=== PATIENT | male | born 1930 | race Hispanic/Latino ===

== ENCOUNTER 2017-04-30 00:42 | Emergency (ER) | payer MEDICARE ==
--- NOTE | 2017-04-30 02:31 | Cat Scan Report ---
FINAL REPORT EXAM: CT HEAD/BRAIN WO CON HISTORY: fall pain TECHNIQUE: Routine axial imaging was obtained of the brain without IV contrast. Comparison is made to the study of 04/06/2016. FINDINGS: There is mild generalized atrophy. There is a remote stroke in the right occipital lobe. There is no evidence of acute stroke or hemorrhage. There is diminished attenuation of the periventricular white matter bilaterally compatible with chronic microvascular disease changes. There are no extra-axial fluid collections. There are benign basal ganglia calcifications body. The visualized sinuses are clear. The mastoid air cells are well pneumatized. The calvarium appears intact. IMPRESSION: Mild generalized atrophy with chronic ischemic white matter changes. No evidence of acute stroke or hemorrhage Remote stroke in the right occipital lobe.
--- NOTE | 2017-04-30 02:34 | Cat Scan Report ---
FINAL REPORT EXAM: CT CERVICAL SPINE WO CON HISTORY: fall pain TECHNIQUE: Routine axial imaging was obtained of the cervical spine without IV contrast with sagittal and coronal reconstructions FINDINGS: There is severe narrowing of the C5-C6 and C6-C7 disc with mild narrowing of the C4-C5 disc. The alignment appears normal. There is varying degrees of facet arthropathy changes bilaterally with varying degrees of neural foraminal impingement. There is no evidence of fracture. The prevertebral soft tissues and C1-C2 articulation appear intact. The soft tissues reveal inhomogeneous attenuation of both thyroid lobes. 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 No acute injury. Inhomogeneous attenuation of both thyroid lobes. Further evaluation may be obtained with outpatient thyroid sonography.
--- NOTE | 2017-04-30 03:13 | XRay Report ---
FINAL REPORT EXAM: XR SHOULDER 2+V LT HISTORY: post fall shoulder pain TECHNIQUE: Three views of the left shoulder were submitted. FINDINGS: There is no evidence of fracture or dislocation. The AC joint and glenohumeral joint appear intact. Soft tissues are unremarkable. IMPRESSION: No evidence of acute injury.
--- NOTE | 2017-04-30 03:14 | XRay Report ---
FINAL REPORT EXAM: XR PELVIS 1-2V HISTORY: post fall pelvic pain TECHNIQUE: A portable AP view of the pelvis was submitted. FINDINGS: The bony pelvic ring appears intact. The SI joints appear normal. The hip joints are well maintained. There is no evidence of fracture. The soft tissues reveal vascular calcifications in the pelvis and proximal thighs. IMPRESSION: No evidence of acute injury.
[2017-04-30 03:48] LABS: Bilirubin,Urine NEG (Negative); Blood,Urine MOD (Negative); Color,Urine Yellow (Yellow); Hyaline Casts,Urine 4 /LPF; Mucus,Urine FEW /HPF; Nitrite,Urine NEG (Negative); Protein,Urine >500 mg/dL (Negative); Urobilinogen,Urine < 2.0 mg/dL (<2.0)
--- NOTE | 2017-04-30 03:58 | Emergency Department Report ---
ED Fall HPI - General Chief Complaint: Fall Stated Complaint: SHOULDER PAIN Time Seen by Provider: 04/30/17 03:46 Source: patient, EMS (ems notes not available at time of chart dictation), RN notes reviewed, old records reviewed Mode of arrival: Stretcher Limitations: No Limitations - History of Present Illness Initial Comments: This is an 86-year-old gentleman who was previously unknown to this provider. Past medical history includes hypertension, diabetes, heart disease, atrial fibrillation, hemorrhagic stroke, not currently on systemic anticoagulation, only taking Plavix Patient is brought to the hospital by EMS after witnessed mechanical fall. Patient reports tripping over stairs, landing on his ankles, and left shoulder. Prior to the fall, did not have any complaints. Complains of left shoulder pain, and right ankle pain. The pain is sharp, it increases with palpation and range of motion. It decreases with rest. MD Complaint: fall -: Sudden Fall From: standing When Fall Occurred: 1-[address] Fall Occurred: home Loss of Consciousness: none Prolonged Down Time?: no Symptoms Prior to Fall: none Location: other (as per history of present) Location - Extremities: Left: Shoulder, Right: Ankle Severity: mild Quality: aching Context: tripped/slipped Associated Symptoms: denies: headache, neck pain, numbness, weakness, chest paint, shortness of breath, abdominal pain, hematuria, unable to walk, lightheaded, vertigo, confusion - Related Data Home Medications Medication Instructions Recorded Confirmed Last Taken Insulin Aspart [NovoLOG Flexpen] 25 unit SQ QPM 11/27/13 08/15/16 12/27/15 Insulin Aspart [NovoLOG Flexpen] 50 units SQ QAM 11/27/13 08/15/16 12/27/15 Atorvastatin (Nf) [Lipitor (Nf)] 20 mg PO DAILY 03/29/14 08/15/16 12/27/15 FLUoxetine HCL [PROzac] 40 mg PO DAILY 03/29/14 08/15/16 12/27/15 Ferrous Sulfate [Iron Supplement 5 gm PO DAILY 03/29/14 08/15/16 12/27/15 325 Mg tab] Ranitidine (Nf) [Zantac (Nf)] 150 mg PO QHS 03/29/14 08/15/16 12/27/15 150 Doxazosin Mesylate [Cardura] 2 mg PO QHS 08/15/16 08/15/16 Unknown Furosemide [Lasix TAB] 40 mg PO QDAY 08/15/16 08/15/16 Unknown Gabapentin [Neurontin] 300 mg PO Q8HR 08/15/16 08/15/16 Unknown Pantoprazole [Protonix TAB] 40 mg PO DAILY 08/15/16 08/15/16 Unknown Previous Rx's Medication Instructions Recorded Last Taken Type Ipratropium/Albuterol Sulfate 1 ampul IH TIDRT #30 ampul.neb 04/02/14 12/27/15 Rx [DUONEB *Not for PRN Use*] HYDROcodone/APAP 5-325 [[place] 1 each PO Q6HR PRN #10 tablet 12/27/15 Unknown Rx 5-325 mg TAB] Levofloxacin [Levaquin TAB] 750 mg PO Q48H #4 dose 08/18/16 Unknown Rx Metoprolol [Lopressor] 12.5 mg PO BID #30 tablet 08/18/16 Unknown Rx metroNIDAZOLE [Flagyl TAB] 500 mg PO Q8HR #7 day 08/18/16 Unknown Rx Nitrofurantoin [place]/M-Cryst 100 mg PO Q12HR #14 capsule 04/30/17 Unknown Rx [Macrobid CAP] Allergies Allergy/AdvReac Type Severity Reaction Status Date / Time No Known Allergies Allergy Verified 12/02/13 13:38 ED Review of Systems ROS: Stated complaint: SHOULDER PAIN Other details as noted in HPI ED Past Medical Hx - Past Medical History Previous Medical History?: Yes Hx Hypertension: Yes (On carvedilol and others) 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, 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, Cardiac rvw on 11/26/13 "cont' med Mx) Hx Diabetes: Yes Hx GERD: Yes Hx Liver Disease: No Hx Renal Disease: Yes (renal insufficiency) Hx Arthritis: Yes (GENERALIZED) Hx Asthma: No Hx HIV: No Additional medical history: Peptic ulcer disease - Surgical History Past Surgical History?: Yes Hx Open Heart Surgery: Yes Additional Surgical History: circumscison - Social History Smoking Status: Never Smoker Substance Use Type: None - Medications Home Medications: Home Medications Medication Instructions Recorded Confirmed Last Taken Type Insulin Aspart [NovoLOG Flexpen] 25 unit SQ QPM 11/27/13 08/15/16 12/27/15 History Insulin Aspart [NovoLOG Flexpen] 50 units SQ QAM 11/27/13 08/15/16 12/27/15 History Atorvastatin (Nf) [Lipitor (Nf)] 20 mg PO DAILY 03/29/14 08/15/16 12/27/15 History FLUoxetine HCL [PROzac] 40 mg PO DAILY 03/29/14 08/15/16 12/27/15 History Ferrous Sulfate [Iron Supplement 5 gm PO DAILY 03/29/14 08/15/16 12/27/15 History 325 Mg tab] Ranitidine (Nf) [Zantac (Nf)] 150 mg PO QHS 03/29/14 08/15/16 12/27/15 History 150 Ipratropium/Albuterol Sulfate 1 ampul IH TIDRT #30 ampul.neb 04/02/14 08/15/16 12/27/15 Rx [DUONEB *Not for PRN Use*] HYDROcodone/APAP 5-325 [[place] 1 each PO Q6HR PRN #10 tablet 12/27/15 08/15/16 Unknown Rx 5-325 mg TAB] Doxazosin Mesylate [Cardura] 2 mg PO QHS 08/15/16 08/15/16 Unknown History Furosemide [Lasix TAB] 40 mg PO QDAY 08/15/16 08/15/16 Unknown History Gabapentin [Neurontin] 300 mg PO Q8HR 08/15/16 08/15/16 Unknown History Pantoprazole [Protonix TAB] 40 mg PO DAILY 08/15/16 08/15/16 Unknown History Levofloxacin [Levaquin TAB] 750 mg PO Q48H #4 dose 08/18/16 Unknown Rx Metoprolol [Lopressor] 12.5 mg PO BID #30 tablet 08/18/16 Unknown Rx metroNIDAZOLE [Flagyl TAB] 500 mg PO Q8HR #7 day 08/18/16 Unknown Rx Nitrofurantoin [place]/M-Cryst 100 mg PO Q12HR #14 capsule 04/30/17 Unknown Rx [Macrobid CAP] ED Physical Exam - General Limitations: No Limitations General appearance: alert, in no apparent distress - Head Head exam: Present: atraumatic, normocephalic - Eye Eye exam: Present: normal appearance, EOMI. Absent: nystagmus - ENT ENT exam: Present: normal exam, normal orophraynx, mucous membranes moist, normal external ear exam - Neck Neck exam: Present: normal inspection, full ROM - Respiratory Respiratory exam: Present: normal lung sounds bilaterally. Absent: respiratory distress, chest wall tenderness - Cardiovascular Cardiovascular Exam: Present: regular rate, irregular rhythm, normal heart sounds. Absent: systolic murmur, diastolic murmur, rubs, gallop - GI/Abdominal GI/Abdominal exam: Present: soft, normal bowel sounds. Absent: distended, tenderness, guarding, rebound, rigid, pulsatile mass - Rectal Rectal exam: Present: deferred - Extremities Exam Extremities exam: Present: normal inspection, normal capillary refill, other ( the pelvis is stable. There is no long bony tenderness. 2+ pulses noted in the bilateral upper and lower extremities. Sensation intact to light touch in the bilateral deltoid, median, radial, ulnar distribution. Left shoulder is point tender to the lateral and anterior aspect. Patient has intact passive range of motion and active range of motion of the bilateral shoulders and upper extremities. The right ankle is tender on the medial and lateral malleolus. There is no calcaneal tenderness. There is no plantar foot tenderness. There is no fifth metatarsal tenderness.). Absent: pedal edema, joint swelling, calf tenderness - Back Exam Back exam: Present: normal inspection, full ROM. Absent: paraspinal tenderness , vertebral tenderness - Neurological Exam Neurological exam: Present: alert, CN II-XII intact, other (Extraocular movements intact. Tongue midline. No facial droop. Facial sensation intact to light touch in the V1, V2, V3 distribution bilaterally. 5 and 5 strength in 4 extremities.. Sensation is intact to light touch in 4 extremities.). Absent : motor sensory deficit - Psychiatric Psychiatric exam: Present: normal affect, normal mood - Skin Skin exam: Present: warm, dry, intact, normal color. Absent: rash ED Course Vital Signs 04/30/17 04/30/17 04/30/17 01:24 01:30 01:31 Temperature 97.9 F Pulse Rate 71 Respiratory 18 Rate Blood Pressure 134/68 161/69 O2 Sat by Pulse 100 99 99 Oximetry 04/30/17 04/30/17 04/30/17 01:36 02:43 02:45 Temperature Pulse Rate Respiratory 18 Rate Blood Pressure 134/68 134/68 O2 Sat by Pulse 99 100 99 Oximetry 04/30/17 03:00 Temperature Pulse Rate Respiratory Rate Blood Pressure 125/63 O2 Sat by Pulse Oximetry ED Medical Decision Making - Lab Data Vital Signs 04/30/17 04/30/17 04/30/17 01:24 01:30 01:31 Temperature 97.9 F Pulse Rate 71 Respiratory 18 Rate Blood Pressure 134/68 161/69 O2 Sat by Pulse 100 99 99 Oximetry 04/30/17 04/30/17 04/30/17 01:36 02:43 02:45 Temperature Pulse Rate Respiratory 18 Rate Blood Pressure 134/68 134/68 O2 Sat by Pulse 99 100 99 Oximetry 04/30/17 03:00 Temperature Pulse Rate Respiratory Rate Blood Pressure 125/63 O2 Sat by Pulse Oximetry Lab Results 04/30/17 Range/Units 03:08 Urine Color Yellow (Yellow) Urine Turbidity Clear (Clear) Urine pH 5.0 (5.0-7.0) Ur Specific [place] 1.017 (1.003-1.030) Urine Protein >500 (Negative) mg/dL Urine Glucose (UA) 50 (Negative) mg/dL Urine Ketones Neg (Negative) mg/dL Urine Blood Mod (Negative) Urine Nitrite Neg (Negative) Urine Bilirubin Neg (Negative) Urine Urobilinogen < 2.0 (<2.0) mg/dL Ur Leukocyte Esterase Lg (Negative) Urine WBC (Auto) 53.0 H (0.0-6.0) /HPF Urine RBC (Auto) 5.0 (0.0-6.0) /HPF U Epithel Cells (Auto) < 1.0 (0-13.0) /HPF Hyaline Casts 4 /LPF Urine Mucus Few /HPF - Radiology Data Radiology results: report reviewed, image reviewed interpreted by me: X-ray of the bilateral ankles, interpreted by this provider: No fracture or dislocation, incidental arterial calcifications noted, no acute disease CT scan of the brain, cervical spine, interpreted by radiology: DJD, chronic findings, no acute disease X-ray of the pelvis is negative for acute findings. X-ray the shoulder is negative for acute findings. - Medical Decision Making Differential diagnosis, including but not limited to: Intracranial injury, cervical spine injury, musculoskeletal injury, mechanical fall, urinary tract infection Assessment and plan: 86-year-old male status post mechanical fall, nonfocal neurologic examination, family at bedside, they reiterate the patient appears to be at baseline, CT scan of the brain and cervical spine negative, plain films Negative. patient is asymptomatic from a urinary tract perspective, but urinalysis does suggest asymptomatic bacteriuria. Given his advanced age, patient will be treated empirically, and extensive discussion had with family about return precautions. Family specifically understands that given her advanced age, mechanism of fall, underlying comorbidities and the fact that he takes Plavix does theoretically puts the patient at risk for delayed presentation of bleed. Family indicates they feel comfortable to watch over patient and bring him back if his mental status changes. Critical care attestation.: If time is entered above; I have spent that time in minutes in the direct care of this critically ill patient, excluding procedure time. ED Disposition Clinical Impression: Fall Disposition: DC-01 TO HOME OR SELFCARE Is pt being admited?: No Does the pt Need Aspirin: No Condition: Stable Additional Instructions: Continue current outpatient medications. Take acetaminophen [id number], 650 mg, 4-6 hours, as needed for pain. Rest and avoid heavy lifting and avoid strenuous physical activity. Pain typically is worse before it gets better after a mechanical fall. Follow-up with her primary care doctor within the next week. Return to the ER right away with new pain, worsening pain, migration of pain, fevers, chills, lethargy, irritability, intractable nausea or vomiting, change in mental status, confusion, inability to tolerate liquid feeds. Referrals: RENNY BURR MD [Staff Physician] - 3-5 Days
[2017-04-30] MEDS ORDERED: TYLENOL PO ONE (03:59)
[2017-04-30] MEDS ORDERED: MACROBID PO ONE (03:59)
--- NOTE | 2017-04-30 04:43 | XRay Report ---
FINAL REPORT PROCEDURE: XR ANKLE BILAT 2V TECHNIQUE: RIGHT ankle radiographs, AP and lateral views. HISTORY: ankle pain post fall COMPARISON: No prior studies are available for comparison. FINDINGS: There is no fracture or malalignment. 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 There are large calcaneal spurs. There is generalized soft tissue swelling. There are vascular calcifications. IMPRESSION: There is no acute bony injury. There is soft tissue swelling..
[2017-04-30 05:00] VITALS: BP 146/71
== END 2017-04-30 05:16 | disposition home or self-care (01) ==
LOC: ED 00:42
DX: M25.512 Pain in left shoulder (principal); M25.571 Pain in right ankle and joints of right foot; I10 Essential (primary) hypertension; Z86.73 Personal history of transient ischemic attack (TIA), and cerebral infarction without residual deficits; I25.2 Old myocardial infarction; E11.9 Type 2 diabetes mellitus without complications; M19.90 Unspecified osteoarthritis, unspecified site; Z79.4 Long term (current) use of insulin; W01.0XXA Fall on same level from slipping, tripping and stumbling without subsequent striking against object, initial encounter; Y93.89 Activity, other specified; Y92.89 Other specified places as the place of occurrence of the external cause; Y99.8 Other external cause status
CPT/HCPCS: 70450; 72125; 72170; 81001

== ENCOUNTER 2017-07-15 14:29 | Outpatient (CLI) | payer MEDICARE ==
[2017-07-15 14:58] LABS: Basophils % (Auto) 0.6 % (0.0-1.8); Eosinophils # (Auto) 0.3 K/mm3 (0.0-0.4); Eosinophils % (Auto) 4.7 % (0.0-4.3); Hematocrit 33.5 % (35.5-45.6); Hemoglobin 11.1 gm/dl (11.8-15.2); Lymphocytes # (Auto) 2.6 K/mm3 (1.2-5.4); Lymphocytes % (Auto) 41.2 % (13.4-35.0); Mean Corpuscular HGB Conc 33 % (32-34); Mean Corpuscular Hemoglobin 30 pg (28-32); Mean Corpuscular Volume 92 fl (84-94); Monocytes # (Auto) 0.6 K/mm3 (0.0-0.8); Monocytes % (Auto) 8.6 % (0.0-7.3); Platelet Count 161 K/mm3 (140-440); Red Blood Count 3.64 M/mm3 (3.65-5.03); Red Cell Distribution Width 15.3 % (13.2-15.2)
[2017-07-15 15:22] LABS: Albumin 3.3 g/dL (3.9-5); Calcium 8.9 mg/dL (8.4-10.2)
--- NOTE | 2017-07-15 15:32 | Cat Scan Report ---
CT HEAD WITHOUT CONTRAST: HISTORY: Altered mental status. TECHNIQUE: Sequential 2.5mm CT images. COMPARISON: 04/30/17. FINDINGS: Cerebral Parenchyma: Mild diffuse volume loss and chronic white matter changes are unchanged. A chronic right occipital infarct measuring 4.3 x 2.2 cm in axial plane is unchanged. There is no evidence for hemorrhage, mass or large area of acute ischemia on noncontrast CT. Cerebellum: Within normal limits. Brainstem: Within normal limits. Ventricles: Normal. Sella: Normal. Extra-axial spaces: Normal. Basal Cisterns: Normal. Intracranial Hemorrhage: None. Midline Shift: None. Calvarium: Normal. Sinuses: Normal. Mastoid Air Cells: Normal. Visualized Orbits: Normal. IMPRESSION: No acute intracranial process. Chronic findings as outlined above which are unchanged since 04/30/17. These findings were discussed with Dr. Munoz at 1524 hrs.
== END 2017-07-15 14:30 | disposition home or self-care (01) ==
LOC: CT 14:29
PROVIDERS: ATTEND Internal Medicine
DX: I13.0 Hypertensive heart and chronic kidney disease with heart failure and stage 1 through stage 4 chronic kidney disease, or unspecified chronic kidney disease (principal); I50.9 Heart failure, unspecified; N18.3 Chronic kidney disease, stage 3 (moderate); E11.22 Type 2 diabetes mellitus with diabetic chronic kidney disease; D50.8 Other iron deficiency anemias; Z79.4 Long term (current) use of insulin; Z79.899 Other long term (current) drug therapy
CPT/HCPCS: 36415; 70450; 80053; 83036; 85025

== ENCOUNTER 2017-12-03 00:13 | Emergency (ER) | payer MEDICARE ==
[2017-12-03 01:46] LABS: Basophils # (Auto) 0.1 K/mm3 (0.0-0.1); Basophils % (Auto) 0.8 % (0.0-1.8); Eosinophils # (Auto) 0.2 K/mm3 (0.0-0.4); Eosinophils % (Auto) 2.3 % (0.0-4.3); Hematocrit 37.7 % (35.5-45.6); Hemoglobin 12.4 gm/dl (11.8-15.2); Lymphocytes # (Auto) 2.2 K/mm3 (1.2-5.4); Lymphocytes % (Auto) 26.9 % (13.4-35.0); Mean Corpuscular HGB Conc 33 % (32-34); Mean Corpuscular Hemoglobin 30 pg (28-32); Mean Corpuscular Volume 92 fl (84-94); Monocytes # (Auto) 0.6 K/mm3 (0.0-0.8); Monocytes % (Auto) 7.3 % (0.0-7.3); Platelet Count 190 K/mm3 (140-440)
--- NOTE | 2017-12-03 01:50 | Emergency Department Report ---
ED Fall HPI - General Chief Complaint: Head Injury Stated Complaint: FALL Time Seen by Provider: 12/03/17 01:36 Source: patient Mode of arrival: Wheelchair - History of Present Illness Initial Comments: Patient is a 87-year-old male with history of hypertension, CVA, coronary artery disease. Patient presented to the ER accompanied by his daughter for assessment after a fall that happened just prior to coming to the ER. His daughter stated that he tripped and fell. He he denied any loss of consciousness, new weakness, new numbness with tingling sensation. Patient is coming with the swelling on the top of his head due to contusion. Complaint: fall -: Sudden Fall From: standing When Fall Occurred: just prior to arrival Fall Witnessed: yes, by family Place Fall Occurred: home Loss of Consciousness: none Prolonged Down Time?: no Symptoms Prior to Fall: none Location: head Severity scale (0 -10): 5 Context: tripped/slipped Associated Symptoms: denies - Related Data Home Medications Medication Instructions Recorded Confirmed Last Taken Atorvastatin (Nf) [Lipitor (Nf)] 20 mg PO DAILY 03/29/14 12/03/17 12/27/15 Ferrous Sulfate [Iron Supplement 5 gm PO DAILY 03/29/14 12/03/17 12/27/15 325 Mg tab] Ranitidine (Nf) [Zantac (Nf)] 150 mg PO QHS 03/29/14 12/03/17 12/27/15 150 Clopidogrel Bisulfate [Plavix] 75 mg PO DAILY 12/03/17 12/03/17 Unknown ISOSORBIDE MONOnitrate [Imdur ER] 30 mg PO DAILY 12/03/17 12/03/17 Unknown Mirabegron [Myrbetriq] 25 mg PO QDAY 12/03/17 12/03/17 Unknown Sertraline [Zoloft] 50 mg PO QDAY 12/03/17 12/03/17 Unknown Previous Rx's Medication Instructions Recorded Last Taken Type Metoprolol [Lopressor TAB] 12.5 mg PO BID #30 tablet 08/18/16 10/16/17 10:00 Rx Lispro Insulin [Humalog] 0 unit SUB-Q ACHS units 10/22/17 Unknown Rx Allergies Allergy/AdvReac Type Severity Reaction Status Date / Time No Known Allergies Allergy Verified 12/02/13 13:38 ED Review of Systems ROS: Stated complaint: FALL Other details as noted in HPI Comment: All other systems reviewed and negative Constitutional: denies: chills, fever Respiratory: denies: cough, orthopnea, shortness of breath, SOB with exertion Cardiovascular: denies: chest pain, palpitations, dyspnea on exertion Gastrointestinal: denies: abdominal pain, nausea, vomiting, diarrhea, constipation, hematemesis, hematochezia Genitourinary: denies: urgency, dysuria, frequency, hematuria, discharge, testicular pain Neurological: headache. 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 - Social History Smoking Status: Never Smoker - Medications Home Medications: Home Medications Medication Instructions Recorded Confirmed Last Taken Type Atorvastatin (Nf) [Lipitor (Nf)] 20 mg PO DAILY 03/29/14 12/03/17 12/27/15 History Ferrous Sulfate [Iron Supplement 5 gm PO DAILY 03/29/14 12/03/17 12/27/15 History 325 Mg tab] Ranitidine (Nf) [Zantac (Nf)] 150 mg PO QHS 03/29/14 12/03/17 12/27/15 History 150 Metoprolol [Lopressor TAB] 12.5 mg PO BID #30 tablet 08/18/16 12/03/17 10/16/17 10:00 Rx Lispro Insulin [Humalog] 0 unit SUB-Q ACHS units 10/22/17 12/03/17 Unknown Rx Clopidogrel Bisulfate [Plavix] 75 mg PO DAILY 12/03/17 12/03/17 Unknown History ISOSORBIDE MONOnitrate [Imdur ER] 30 mg PO DAILY 12/03/17 12/03/17 Unknown History Mirabegron [Myrbetriq] 25 mg PO QDAY 12/03/17 12/03/17 Unknown History Sertraline [Zoloft] 50 mg PO QDAY 12/03/17 12/03/17 Unknown History ED Physical Exam - General Limitations: Physical Limitation General appearance: alert, in no apparent distress - Head Head exam: Present: other (contusion to the scalp, no laceration.) - ENT ENT exam: Present: normal exam - Neck Neck exam: Present: normal inspection, full ROM. Absent: tenderness, meningismus, lymphadenopathy, thyromegaly - Respiratory Respiratory exam: Present: normal lung sounds bilaterally. Absent: respiratory distress, wheezes, rales, rhonchi, chest wall tenderness, accessory muscle use, decreased breath sounds - Cardiovascular Cardiovascular Exam: Present: regular rate, normal rhythm, normal heart sounds - GI/Abdominal GI/Abdominal exam: Present: soft, normal bowel sounds. Absent: distended, tenderness, guarding, rebound, rigid, organomegaly, mass, bruit, pulsatile mass - Extremities Exam Extremities exam: Present: normal inspection, full ROM, normal capillary refill - Back Exam Back exam: Present: normal inspection, full ROM. Absent: tenderness, CVA tenderness (R), CVA tenderness (L), muscle spasm, paraspinal tenderness, vertebral tenderness - Neurological Exam Neurological exam: Present: alert, oriented X3, CN II-XII intact - Skin Skin exam: Present: warm, intact, normal color ED Course Vital Signs 12/03/17 12/03/17 00:22 00:47 Temperature 98.0 F 98.0 F Pulse Rate 53 L 55 L Respiratory 18 18 Rate Blood Pressure 173/66 173/66 O2 Sat by Pulse 99 98 Oximetry ED Medical Decision Making - Lab Data Result diagrams: 12/03/17 01:21 12/03/17 01:21 - Radiology Data Radiology results: report reviewed Referring Physician: SOBEIDA ELIAS Patient Name: SY RIVERA Date of : 1930 Sex: Male Report Date: 2017-12-03 Report Status: Finalized Findings [facility] [address] [place] [address] Cat Scan Report Signed Patient: SY RIVERA MR#: [id number] : 1930 Acct:[id number] Age/Sex: 87 / M ADM Date: 12/03/17 Loc: ED Attending Dr: Ordering Physician: SOBEIDA ELIAS MD Date of Service: 12/03/17 Procedure(s): CT head/brain wo con Accession Number(s): [id number] cc: SOBEIDA ELIAS MD FINAL REPORT PROCEDURE: CT HEAD/BRAIN WO CON TECHNIQUE: Computerized tomography of the head was performed without contrast material. HISTORY: Head injury w/ fall on Plavix COMPARISON: No prior studies are available for comparison. FINDINGS: Skull and scalp: Large cephalhematoma identified along the right frontal region of the skull. No skull fracture.. Paranasal sinuses: Normal. Ventricles and subarachnoid spaces: Normal. Cerebrum: There is no evidence of acute intracranial hemorrhage, hematoma, infarction, midline displacement or mass. Moderate atrophy is noted. Area of encephalomalacia in the right occipital lobe consistent with old infarction. Moderate atrophy and moderate periventricular deep white matter changes. There are benign calcifications in both basal ganglia.. Cerebellum and brainstem: No evidence of hemorrhage, acute infarction or mass. Vasculature: Normal. Comments: None. IMPRESSION: There is no evidence of an acute intracranial process. Moderate atrophy and periventricular deep white matter changes. Old infarction right occipital lobe. Large cephalhematoma along the right frontal region of the scalp. Transcribed By: [facility] Dictated By: MATTHEW MANZANO MD Electronically Authenticated By: MATTHEW MANZANO MD Signed Date/Time: 12/03/17212 Referring Physician: FIDELINA QUINTANA Patient Name: SY RIVERA Date of : 1930 Sex: Male Report Date: 2017-12-03 Report Status: Finalized Findings [facility] [address] [place] [address] Cat Scan Report Signed Patient: SY RIVERA MR#: [id number] : 1930 Acct:[id number] Age/Sex: 87 / M ADM Date: 12/03/17 Loc: ED Attending Dr: Ordering Physician: FIDELINA QUINTANA Date of Service: 12/03/17 Procedure(s): CT cervical spine wo con Accession Number(s): [id number] cc: FIDELINA QUINTANA FINAL REPORT PROCEDURE: CT CERVICAL SPINE WO CON TECHNIQUE: Computerized tomography of the cervical spine was performed from the skull base to T1 without contrast material. HISTORY: Head Injury with Fall on Plavix COMPARISON: 04/30/2017 FINDINGS: The alignment of the vertebral segments is normal. No acute fracture or dislocation of the cervical spine. There is loss of disc space height at the C5-6 and C6-7 levels. Moderate spur formation off of the vertebral bodies from the C4 through the C7 vertebral levels are noted. The spinal canal is adequate at all levels. Slight facet hypertrophy at all levels. IMPRESSION: There is no evidence of acute fracture or dislocation of the cervical spine. Moderate cervical spondylosis and degenerative disc changes.. Transcribed By: [facility] Dictated By: MATTHEW MANZANO MD Electronically Authenticated By: MATTHEW MANZANO MD Signed Date/Time: 12/03/17237 DD/ 7 TD/TT: 12/03/17237 - Medical Decision Making Patient is alert oriented in no acute distress. Critical care attestation.: If time is entered above; I have spent that time in minutes in the direct care of this critically ill patient, excluding procedure time. ED Disposition Clinical Impression: Head injury, Contusion, Fall Disposition: DC-01 TO HOME OR SELFCARE Is pt being admited?: No Condition: Stable Instructions: Minor Head Injury (ED), Fall Prevention for Older Adults (ED)
--- NOTE | 2017-12-03 02:21 | Cat Scan Report ---
FINAL REPORT PROCEDURE: CT HEAD/BRAIN WO CON TECHNIQUE: Computerized tomography of the head was performed without contrast material. HISTORY: Head injury w/ fall on Plavix COMPARISON: No prior studies are available for comparison. FINDINGS: Skull and scalp: Large cephalhematoma identified along the right frontal region of the skull. No skull fracture.. Paranasal sinuses: Normal. Ventricles and subarachnoid spaces: Normal. Cerebrum: There is no evidence of acute intracranial hemorrhage, hematoma, infarction, midline displacement or mass. Moderate atrophy is noted. Area of encephalomalacia in the right occipital lobe consistent with old infarction. Moderate atrophy and moderate periventricular deep white matter changes. There are benign calcifications in both basal ganglia.. Cerebellum and brainstem: No evidence of hemorrhage, acute infarction or mass. Vasculature: Normal. Comments: None. IMPRESSION: There is no evidence of an acute intracranial process. Moderate atrophy and periventricular deep white matter changes. Old infarction right occipital lobe. Large cephalhematoma along the right frontal region of the scalp.
--- NOTE | 2017-12-03 02:23 | Cat Scan Report ---
FINAL REPORT PROCEDURE: CT FACIAL BONES WO CON TECHNIQUE: Computerized tomography of the facial bones and soft tissues with axial and coronal sections performed from the cranial aspect of the frontal sinuses to the caudal portion of the mandible without contrast material. HISTORY: Head Injury after Fall on Plavix COMPARISON: No prior studies are available for comparison. FINDINGS: Bones: No significant abnormality. Paranasal sinuses: Clear. Soft tissues: Mild soft tissue swelling over the right orbit and cheek region.. Other: None. IMPRESSION: There is no evidence of an acute fracture of the facial bones. Mild soft tissue swelling over the right orbit and cheek region.
--- NOTE | 2017-12-03 02:45 | Cat Scan Report ---
FINAL REPORT PROCEDURE: CT CERVICAL SPINE WO CON TECHNIQUE: Computerized tomography of the cervical spine was performed from the skull base to T1 without contrast material. HISTORY: Head Injury with Fall on Plavix COMPARISON: 04/30/2017 FINDINGS: The alignment of the vertebral segments is normal. No acute fracture or dislocation of the cervical spine. There is loss of disc space height at the C5-6 and C6-7 levels. Moderate spur formation off of the vertebral bodies from the C4 through the C7 vertebral levels are noted. The spinal canal is adequate at all levels. Slight facet hypertrophy at all levels. IMPRESSION: There is no evidence of acute fracture or dislocation of the cervical spine. Moderate cervical spondylosis and degenerative disc changes..
[2017-12-03 03:11] LABS: Calcium 9.4 mg/dL (8.4-10.2)
[2017-12-03 03:12] LABS: INR 0.93 (0.87-1.13)
[2017-12-03 03:13] LABS: Partial Thromboplastin Time 29.5 Sec. (24.2-36.6)
[2017-12-03 04:29] VITALS: BP 190/77
== END 2017-12-03 04:20 | disposition home or self-care (01) ==
LOC: ED 00:13
DX: S00.93XA Contusion of unspecified part of head, initial encounter (principal); I11.0 Hypertensive heart disease with heart failure; I25.2 Old myocardial infarction; N28.9 Disorder of kidney and ureter, unspecified; M19.90 Unspecified osteoarthritis, unspecified site; F03.90 Unspecified dementia, unspecified severity, without behavioral disturbance, psychotic disturbance, mood disturbance, and anxiety; Z79.899 Other long term (current) drug therapy; Z86.73 Personal history of transient ischemic attack (TIA), and cerebral infarction without residual deficits; W18.30XA Fall on same level, unspecified, initial encounter; Y93.89 Activity, other specified; Y99.8 Other external cause status; Y92.89 Other specified places as the place of occurrence of the external cause
CPT/HCPCS: 36415; 70450; 70486; 72125; 80048; 84484; 85025; 85610; 85730; 93005; 93010

== ENCOUNTER 2018-06-21 18:58 | Emergency (ER) | payer MEDICARE ==
[2018-06-21 19:42] LABS: Basophils % (Auto) 0.8 % (0.0-1.8); Eosinophils # (Auto) 0.2 K/mm3 (0.0-0.4); Eosinophils % (Auto) 3.8 % (0.0-4.3); Hematocrit 38.9 % (35.5-45.6); Hemoglobin 12.7 gm/dl (11.8-15.2); Lymphocytes # (Auto) 1.9 K/mm3 (1.2-5.4); Lymphocytes % (Auto) 31.7 % (13.4-35.0); Mean Corpuscular HGB Conc 33 % (32-34); Mean Corpuscular Volume 91 fl (84-94); Monocytes # (Auto) 0.5 K/mm3 (0.0-0.8); Monocytes % (Auto) 7.7 % (0.0-7.3); Platelet Count 209 K/mm3 (140-440); Red Blood Count 4.28 M/mm3 (3.65-5.03); Red Cell Distribution Width 15.7 % (13.2-15.2)
[2018-06-21 20:09] LABS: Albumin 3.1 g/dL (3.9-5); Calcium 9.4 mg/dL (8.4-10.2)
--- NOTE | 2018-06-21 21:14 | Emergency Department Report ---
ED Altered Mental Status HPI - General Chief Complaint: Altered Mental Status Stated Complaint: BLADDER INFECTION/NOT EATING OR DRINKING Time Seen by Provider: 06/21/18 20:43 Source: family Mode of arrival: Wheelchair Limitations: No Limitations - History of Present Illness Initial Comments: 88-year-old male with history of dementia presents to ED for evaluation of possible UTI. Family states patient has been acting out, being aggressive and difficult. Daughter checked the patient's urine with at-home testing kit and it was positive for UTI. The patient was brought to the ER. PCP: Dr Orlando LEONE Complaint: altered mental status -: days(s) (1) Severity: mild Consistency of Symptoms: constant Context: other (possible UTI) Associated Symptoms: denies: fever/chills, nausea/vomiting - Related Data Home Medications Medication Instructions Recorded Confirmed Last Taken Atorvastatin (Nf) [Lipitor (Nf)] 20 mg PO DAILY 03/29/14 12/03/17 12/27/15 Ferrous Sulfate [Iron Supplement 5 gm PO DAILY 03/29/14 12/03/17 12/27/15 325 Mg tab] Ranitidine (Nf) [Zantac (Nf)] 150 mg PO QHS 03/29/14 12/03/17 12/27/15 150 Clopidogrel Bisulfate [Plavix] 75 mg PO DAILY 12/03/17 12/03/17 Unknown ISOSORBIDE MONOnitrate [Imdur ER] 30 mg PO DAILY 12/03/17 12/03/17 Unknown Mirabegron [Myrbetriq] 25 mg PO QDAY 12/03/17 12/03/17 Unknown Sertraline [Zoloft] 50 mg PO QDAY 12/03/17 12/03/17 Unknown Previous Rx's Medication Instructions Recorded Last Taken Type Metoprolol [Lopressor TAB] 12.5 mg PO BID #30 tablet 08/18/16 10/16/17 10:00 Rx Lispro Insulin [Humalog] 0 unit SUB-Q ACHS units 10/22/17 Unknown Rx Ciprofloxacin HCl [Cipro] 500 mg PO BID #10 tablet 06/21/18 Unknown Rx Allergies Allergy/AdvReac Type Severity Reaction Status Date / Time No Known Allergies Allergy Verified 12/02/13 13:38 ED Review of Systems ROS: Stated complaint: BLADDER INFECTION/NOT EATING OR DRINKING Other details as noted in HPI Comment: All other systems reviewed and negative Constitutional: denies: fever Respiratory: denies: cough Genitourinary: other (reports foul-smelling urine) ED Past Medical Hx - Past Medical History Hx Hypertension: Yes (On carvedilol and others) Hx CVA: Yes (with residual left-sided weakness, 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 - Social History Smoking Status: Never Smoker Substance Use Type: None - Medications Home Medications: Home Medications Medication Instructions Recorded Confirmed Last Taken Type Atorvastatin (Nf) [Lipitor (Nf)] 20 mg PO DAILY 03/29/14 12/03/17 12/27/15 History Ferrous Sulfate [Iron Supplement 5 gm PO DAILY 03/29/14 12/03/17 12/27/15 History 325 Mg tab] Ranitidine (Nf) [Zantac (Nf)] 150 mg PO QHS 03/29/14 12/03/17 12/27/15 History 150 Metoprolol [Lopressor TAB] 12.5 mg PO BID #30 tablet 08/18/16 12/03/17 10/16/17 10:00 Rx Lispro Insulin [Humalog] 0 unit SUB-Q ACHS units 10/22/17 12/03/17 Unknown Rx Clopidogrel Bisulfate [Plavix] 75 mg PO DAILY 12/03/17 12/03/17 Unknown History ISOSORBIDE MONOnitrate [Imdur ER] 30 mg PO DAILY 12/03/17 12/03/17 Unknown H istory Mirabegron [Myrbetriq] 25 mg PO QDAY 12/03/17 12/03/17 Unknown History Sertraline [Zoloft] 50 mg PO QDAY 12/03/17 12/03/17 Unknown History Ciprofloxacin HCl [Cipro] 500 mg PO BID #10 tablet 06/21/18 Unknown Rx ED Physical Exam - General Limitations: No Limitations General appearance: alert, in no apparent distress - Head Head exam: Present: atraumatic, normocephalic - Eye Eye exam: Present: normal appearance - ENT ENT exam: Present: mucous membranes moist - Neck Neck exam: Present: normal inspection - Respiratory Respiratory exam: Present: normal lung sounds bilaterally. Absent: respiratory distress - Cardiovascular Cardiovascular Exam: Present: regular rate, normal rhythm - GI/Abdominal GI/Abdominal exam: Present: soft. Absent: distended, tenderness - Extremities Exam Extremities exam: Present: normal inspection - Neurological Exam Neurological exam: Present: alert, altered (at baseline per family due to hx of dementia) - Psychiatric Psychiatric exam: Present: normal affect, normal mood - Skin Skin exam: Present: warm, dry, intact, normal color. Absent: rash ED Course Vital Signs 06/21/18 06/21/18 06/21/18 19:10 21:04 23:01 Temperature 97.9 F 97.9 F 97.8 F Pulse Rate 77 84 81 Respiratory 16 14 14 Rate Blood Pressure 120/74 Blood Pressure 139/81 138/74 [Right] O2 Sat by Pulse 99 98 100 Oximetry - Lab Data Result diagrams: 06/21/18 19:28 06/21/18 19:28 Lab Results 06/21/18 06/21/18 06/21/18 Range/Units 19:28 19:28 Unknown WBC 6.1 (4.5-11.0) K/mm3 RBC 4.28 (3.65-5.03) M/mm3 Hgb 12.7 (11.8-15.2) gm/dl Hct 38.9 (35.5-45.6) % MCV 91 (84-94) fl MCH 30 (28-32) pg MCHC 33 (32-34) % RDW 15.7 H (13.2-15.2) % Plt Count 209 (140-440) K/mm3 Lymph % (Auto) 31.7 (13.4-35.0) % [place] % (Auto) 7.7 H (0.0-7.3) % Eos % (Auto) 3.8 (0.0-4.3) % Baso % (Auto) 0.8 (0.0-1.8) % Lymph # 1.9 (1.2-5.4) K/mm3 [place] # 0.5 (0.0-0.8) K/mm3 Eos # 0.2 (0.0-0.4) K/mm3 Baso # 0.0 (0.0-0.1) K/mm3 Seg Neutrophils % 56.0 (40.0-70.0) % Seg Neutrophils # 3.4 (1.8-7.7) K/mm3 Sodium 141 (137-145) mmol/L Potassium 4.9 (3.6-5.0) mmol/L Chloride 106.7 (98-107) mmol/L Carbon Dioxide 21 L (22-30) mmol/L Anion Gap 18 mmol/L BUN 52 H (9-20) mg/dL Creatinine 2.0 H (0.8-1.5) mg/dL Estimated GFR 32 ml/min BUN/Creatinine Ratio 26 % Glucose 171 H (75-100) mg/dL Calcium 9.4 (8.4-10.2) mg/dL Total Bilirubin 0.50 (0.1-1.2) mg/dL AST 17 (5-40) units/L ALT 14 (7-56) units/L Alkaline Phosphatase 148 H (35-129) units/L Total Protein 6.9 (6.3-8.2) g/dL Albumin 3.1 L (3.9-5) g/dL Albumin/Globulin Ratio 0.8 % Urine Color Yellow (Yellow) Urine Turbidity Cloudy (Clear) Urine pH 5.0 (5.0-7.0) Ur Specific Mobile 1.016 (1.003-1.030) Urine Protein >500 (Negative) mg/dL Urine Glucose (UA) 50 (Negative) mg/dL Urine Ketones Neg (Negative) mg/dL Urine Blood Mod (Negative) Urine Nitrite Neg (Negative) Urine Bilirubin Neg (Negative) Urine Urobilinogen < 2.0 (<2.0) mg/dL Ur Leukocyte Esterase Tr (Negative) Urine WBC (Auto) 5.0 (0.0-6.0) /HPF Urine RBC (Auto) 53.0 (0.0-6.0) /HPF U Epithel Cells (Auto) 1.0 (0-13.0) /HPF Urine Bacteria (Auto) 3+ (Negative) /HPF Urine Mucus Few /HPF - Medical Decision Making 88-year-old male with UTI. Daughter states patient is more uncooperative than usual. Vitals normal. Remainder of labs unremarkable. Hx of chronic kidney disease. Compared to past lab values in our system, BUN and Cr at baseline. One dose of IV antibiotics given here in ED. Daughter states she feels comfortable taking him home to treat with PO antibiotics. Family given return precautions. Advised outpatient follow-up. - Differential Diagnosis UTI Critical care attestation.: If time is entered above; I have spent that time in minutes in the direct care of this critically ill patient, excluding procedure time. ED Disposition Clinical Impression: UTI (urinary tract infection) Disposition: DC- TO HOME OR SELFCARE Is pt being admited?: No Condition: Stable Instructions: Urinary Tract Infection in Men (ED) Prescriptions: Ciprofloxacin HCl [Cipro] 500 mg PO BID #10 tablet Referrals: PRIMARY CARE, [Primary Care Provider] - 3-5 Days Time of Disposition: 22:55
[2018-06-21 22:28] LABS: Bacteria,Urine 3+ /HPF (Negative); Bilirubin,Urine NEG (Negative); Blood,Urine MOD (Negative); Color,Urine Yellow (Yellow); Mucus,Urine FEW /HPF; Urobilinogen,Urine < 2.0 mg/dL (<2.0)
[2018-06-21 22:30] LABS: Protein,Urine >500 mg/dL (Negative)
[2018-06-21] MEDS ORDERED: ROCEPHIN/NS 1 GM/50 ML 1 GM/50 ML BAG IV ONE (22:36)
[2018-06-21 23:04] VITALS: BP 138/74
[2018-06-22] MEDS ORDERED: XYLOCAINE 1% MPF 5 mL INFILTRATI ONE (00:28)
[2018-06-22] MEDS ORDERED: ROCEPHIN IM ONE (00:28)
== END 2018-06-21 23:30 | disposition home or self-care (01) ==
LOC: ED 18:58
DX: N39.0 Urinary tract infection, site not specified (principal); I10 Essential (primary) hypertension; I25.2 Old myocardial infarction; E11.9 Type 2 diabetes mellitus without complications; K21.9 Gastro-esophageal reflux disease without esophagitis; M19.90 Unspecified osteoarthritis, unspecified site; Z86.73 Personal history of transient ischemic attack (TIA), and cerebral infarction without residual deficits
CPT/HCPCS: 36415; 80053; 81001; 85025; 93005; 93010; 96372; 99284; J0696